=== PATIENT | female | born 1975 | race Caucasian/White ===

== ENCOUNTER 2016-11-27 12:47 | Emergency (ER) | payer OTHER ==
[~2016-11-27 12:47] MED LIST: COLACE50 MG PO; DHA PRENATAL200 MG PO; DICLOFENAC SODI75 MG PO; DOCUSATE SODIUM50 MG PO; DOXYCYCLINE HY100 M3 PO; FLEXERIL 10MG PO; FLEXIRIL PO; FOLIC ACID0.8 MG PO; HYDROCHLOROTHIA25 MG PO; IBUPROFEN800 MG PO; INDERAL80 MG PO; MACROBID100 MG/CA2 PO; NORCO 5-325 TA1 EACH PO; NORCO 5/325 TAB1 TAB PO; OXYCODONE/APAP PO; PRENATAL VITAMI1 TAB PO; PRILOSEC20 M1 PO; PROTONIX40 MG PO; TAGAMET300 MG PO; TRANDATE100 MG/TAB PO; TUMS300 MG PO; TYLENOL EXTRA500 MG PO; VICODIN 5/500 T1 TAB PO; ZOFRAN ODT4 MG/UDTAB PO; ZOLOFT50 MG PO
[2016-11-27] MEDS ORDERED: NORCO 5-325 TA1 EACH PO (14:53)
[2016-11-27] MEDS ORDERED: CYCLOBENZAPRINE5 M1 PO (14:53)
== END 2016-11-27 15:05 ==
LOC: EDMED 12:47
DX: M25.511 Pain in right shoulder (principal); M54.6 Pain in thoracic spine; I10 Essential (primary) hypertension; K21.9 Gastro-esophageal reflux disease without esophagitis; F17.210 Nicotine dependence, cigarettes, uncomplicated; Z90.89 Acquired absence of other organs